=== PATIENT | female | born 1970 | race Caucasian/White ===

== ENCOUNTER 2017-08-09 03:15 | Emergency (ER) | payer OTHER ==
[~2017-08-09] VITALS: Ht 167.6 cm; Wt 115.6 kg
[2017-08-09 04:09] LABS: HEMATOCRIT 37.9 % (36.0-46.0); HEMOGLOBIN 12.3 G/DL (11.9-15.5); MCH 26.8 PG (29.0-34.0); MCHC 32.5 G/DL (30.0-36.0); MCV 82.6 FL (83-99); PLATELET COUNT 312 K/uL (156-360); RBC DIS.WIDTH-CV 13.2 % (11.8-14.6); RBC DIS.WIDTH-SD 39.9 % (39-53); RED BLOOD COUNT 4.59 M/uL (3.80-5.20); WHITE BLOOD COUNT 7.6 K/uL (4.1-10.2)
[2017-08-09 04:21] LABS: CHLORIDE 107 mEq/L (99-109); SODIUM 139 mEq/L (136-147)
[2017-08-09 04:22] LABS: GLUCOSE 110 mg/dL (70-99)
[2017-08-09 04:26] LABS: CREATININE 0.7 mg/dL (0.6-1.3); GFR ESTIMATE (CALCULATED) > 59 mL/min/
[2017-08-09 04:27] LABS: UREA NITROGEN (BUN) 18 mg/dL (9-23)
[2017-08-09] MEDS ORDERED: GUAIFENESIN600 M1 PO (07:44)
[2017-08-09] MEDS ORDERED: RHINOCORT ALL8.43 ML BOTH NARES (07:44)
[2017-08-09] MEDS ORDERED: ROBITUSSIN NIG237 ML PO (07:48)
[2017-08-09] MEDS ORDERED: PROAIR HFA8.5 GM IH (07:48)
[2017-08-09] MEDS ORDERED: TESSALON200 MG PO (07:48)
[2017-08-09 08:21] VITALS: BP 188/100
== END 2017-08-09 08:21 | disposition home or self-care (01) ==
LOC: EME 03:15
DX: J20.8 Acute bronchitis due to other specified organisms (principal); J32.9 Chronic sinusitis, unspecified; F17.200 Nicotine dependence, unspecified, uncomplicated
CPT/HCPCS: 71046; 80048; 85027; 94640